=== PATIENT | female | born 1945 | race Caucasian/White ===

== ENCOUNTER 2018-11-02 00:53 | Day surgery (SDC) | payer MEDICARE, BC ==
[~2018-11-02] VITALS: Ht 152.4 cm; Wt 87.1 kg
[~2018-11-02 00:53] MED LIST: ACET-2893 PO; ACET650O4 PO; ASPI81TA15 PO; BIS10S PR; DIP50I PO; FLAX100030 PO; FLAX100041 PO; FLUO40CA70 PO; FLUO40CA76 PO; GLUC100026 PO; INUL2TAB7 PO; INUL2TAB8 PO; IRO150 PO; LEVO75TA68 PO; LOVAZA1PT PO; MAGN-40 PO; MELO-150 PO; MOM PO; OMEG500C5 PO; OMEP-218 PO; OMEP20CA68 PO; OXYC-689 PO; RIV10 PO; ROS10 PO; ROSU10TA PO; TEL40 PO; TELM40TA3 PO; TRAM100T22 PO; TRAM100T30 PO; VITA100T PO; [UNRECOGNIZED DRUG - CODE] PO
[2018-11-02] MEDS ORDERED: PROPOFOL EMUL(*) 10MG/ML 20 ML 20 ML ONE (07:17)
[2018-11-02 08:41] VITALS: BP 162/104
[2018-11-02 08:45] VITALS: BP 149/84
[2018-11-02] MEDS ORDERED: LIDOCAINE/SOD BICARB 8.4% SYR ID ONE (09:30)
[2018-11-02] MEDS ORDERED: NORMOSOL R SOLN(*) 1000 ML BAG 1,000 ML IV PRN (09:30)
[2018-11-02 10:50] VITALS: BP 101/69
--- NOTE | 2018-11-02 10:50 | NUR ---
1050- PT BROUGHT TO STEP DOWN VIA CART, PT IN LL POSITION, PT UNRESPONSIVE AT THIS TIME, PT ON 2LPM VIA HF NC, PT MAINTAINING SATS, RESPIRATIONS AND AIRWAY, VSS, SBAR REPORT FROM Tito LAWLER RN AND DR. CHAMBERS 1054- BILL BROUGHT TO BAY 5 AND IS AT BEDSIDE 1055- SBAR REPORT GIVE TO CASANDRA RN
[2018-11-02 11:05] VITALS: BP 121/78
[2018-11-02 11:23] VITALS: BP_SYST 137; BP_SYST 144; BP_DIAS 87
== END 2018-11-02 11:35 | disposition home or self-care (01) ==
LOC: OR 00:53
PROVIDERS: ATTEND Family Medicine
DX: Z12.11 Encounter for screening for malignant neoplasm of colon (principal)
CPT/HCPCS: 00812; G0121; J2704

== ENCOUNTER → 2018-12-01 | Outpatient (CLI) | payer MEDICARE, BC ==
--- NOTE | 2018-12-04 09:35 | RADIOLOGY IMAGING REPORT ---
FACILITY: [facility] PATIENT NAME: NILO GUADALUPE : [id number] MR: [id number] V: [id number] EXAM DATE: ORDERING PHYSICIAN: JANICE LOPEZ TECHNOLOGIST: Christel Agudelo PROCEDURE: BILATERAL DIGITAL SCREENING MAMMOGRAM WITH CAD ASSISTED INTERPRETATION & 3D TOMOSYNTHESIS REASON FOR STUDY: Screening. FAMILY HISTORY OF BREAST CANCER: None. BREAST PROCEDURES/TREATMENTS: None. COMPARISON: 09/16/16, 09/25/15, 09/11/14, 08/31/13. VIEWS OBTAINED: 2D & 3D full field CC & MLO. BREAST DENSITY: The breasts are heterogeneously dense which can obscure small masses. MAMMOGRAM FINDINGS: The parenchymal pattern has remained stable allowing for difference in mammographic technique & patient positioning. IMPRESSION: BIRADS 1: Negative. DIAGNOSTIC CATEGORY 1--NEGATIVE. RECOMMENDATIONS: ROUTINE MAMMOGRAM AND CLINICAL EVALUATION. Dictated by: Tasia Lomas M.D. on 12/01/2018 at 15:28 Transcribed by: DELROY on 12/04/2018 at 8:31 Approved by: Tasia Lomas M.D. on 12/04/2018 at 9:33 [facility]
== END ==
LOC: MAMO 00:50
PROVIDERS: ATTEND Physician Assistant
DX: Z12.31 Encounter for screening mammogram for malignant neoplasm of breast (principal)
CPT/HCPCS: 77063; 77067